=== PATIENT | female | born 1990 | race African-American/Black ===

== ENCOUNTER 2019-06-03 05:25 | Day surgery (SDC) | payer BC ==
[2019-05-28 11:28] VITALS: BMI 25.8
[2019-06-03] MEDS ORDERED: ACETAMINOPHEN 325 MG TABLET (FP) PO PRN (12:11)
[2019-06-03] MEDS ORDERED: IBUPROFEN 400 MG TABLET (FP) PO PRN (12:11)
--- NOTE | 2019-06-03 12:16 | HP ---
Admitting History and Physical - Admission History of Present Illness: 28 yo with hx/o irregular menses ultrasound suspicious for endometrial polyp for D&C, hysterscopy, polypectomy Hx/o nexplanon use History Source: Patient Limitations to Obtaining History: No Limitations - Past Medical History Cardiovascular: No: HTN ...LMP: 05/28/19 ...: No Heme/Onc: No: Anemia Additional Past Medical History: Headaches / Migraines - Past Surgical History Past Surgical History: Yes: None - Smoking History Smoking history: Never smoked - Alcohol/Substance Use Hx Alcohol Use: Yes (SOCIAL) - Social History History of Recent Travel: No Home Medications - Allergies Allergies/Adverse Reactions: Allergies Allergy/AdvReac Type Severity Reaction Status Date / Time No Known Allergies Allergy Verified 06/03/19 11:55 - Home Medications Home Medications: Ambulatory Orders Amitriptyline HCl [Elavil -] 25 mg PO HS 05/28/19 Meloxicam [Mobic] 15 mg PO PRN 06/03/19 Rizatriptan Benzoate [Rizatriptan] 10 mg PO DAILY 06/03/19 Family Disease History - Family Disease History Family History: Denies Review of Systems - Review of Systems Constitutional: reports: No Symptoms Cardiovascular: reports: No Symptoms Respiratory: reports: No Symptoms Gastrointestinal: reports: No Symptoms Musculoskeletal: reports: No Symptoms Integumentary: reports: No Symptoms Endocrine: reports: No Symptoms Physical Examination Vital Signs: Vital Signs Temperature 98.9 F 06/03/19 12:02 Pulse Rate 80 06/03/19 12:02 Respiratory Rate 16 06/03/19 12:02 Blood Pressure 108/64 06/03/19 12:02 O2 Sat by Pulse Oximetry (%) 100 06/03/19 12:02 Constitutional: Yes: Well Nourished, No Distress, Calm Cardiovascular: Yes: Regular Rate and Rhythm Respiratory: Yes: Regular, CTA Bilaterally Gastrointestinal: Yes: Normal Bowel Sounds, Soft Psychiatric: Yes: Alert, Oriented Assessment/Plan 28 yo irregular menses, polyp for surgical removal 1. Consents reviewed and signed 2. preop labs reviewed 3. Will proceed to OR
[2019-06-03] MEDS ORDERED: PROPOFOL 20 ML ONE (13:04)
[2019-06-03] MEDS ORDERED: MIDAZOLAM HCL 2 MG/2 ML SINGLE DOSE VIAL ONE (13:06)
[2019-06-03] MEDS ORDERED: KETOROLAC TROMETHAMINE 30 MG/1 ML VIAL ONE (13:55)
[2019-06-03] MEDS ORDERED: oxyCODONE HCL 5 MG TABLET PO PRN (13:56)
[2019-06-03] MEDS ORDERED: ONDANSETRON 4 MG/2 ML VIAL IVPUSH PRN (13:56)
[2019-06-03] MEDS ORDERED: LACTATED RINGERS SOLUTION 1,000 ML IV SCH (14:00)
--- NOTE | 2019-06-03 14:13 | OP ---
Operative Note - Note: Operative Date: 06/03/19 Pre-Operative Diagnosis: irregular bleeding Operation: hysteroscopy, dilation and curettage, polypectomy using Symphion Findings: large endometrial polyp, bilateral ostia visualized Surgeon: Maggy Contreras Anesthesiologist/BEEF FARMER: Evin Quezada Anesthesia: General Specimens Removed: endometrial polyp, endometrial curetting Estimated Blood Loss (mls): 2 Drains & Tubes with Location: fluid deficit 50 Fluid Volume Replaced (mls): 700 Operative Report Dictated: Yes
[2019-06-03 18:09] VITALS: BP 102/70; PULSE 70; TEMP 98.7
--- NOTE | 2019-06-03 19:25 | OP ---
DATE OF OPERATION: 06/03/2019 PREOPERATIVE DIAGNOSIS: Irregular bleeding, ultrasound findings suspicious polyp. POSTOPERATIVE DIAGNOSIS: Irregular bleeding, ultrasound findings suspicious polyp. SURGERY: Hysteroscopy, dilation and curettage, polypectomy using Symphion resectoscope. FINDINGS: Large endometrial polyp, Bilateral ostia visualized. SURGEON: Gwendolyn Contreras M.D. ANESTHESIOLOGIST: Ag Quezada CRNA ANESTHESIA: General. SPECIMENS: Removed endometrial polyp and endometrial curetting. ESTIMATED BLOOD LOSS: 2 mL FLUIDS GIVEN: 700 FLUID DEFICITS: 15 INDICATION: Patient is a 28-year-old with irregular bleeding. Ultrasound revealed a large endometrial polyp. She decided for surgical management. She was counseled regarding risks, benefits, alternatives, and complications to procedure including infection, bleeding, damage to surrounding organs, uterine perforation. She expressed understanding, was brought to the operating room. DESCRIPTION OF PROCEDURE: When anesthesia was found to be adequate, patient was prepped and draped in normal sterile fashion, placed in dorsal lithotomy position using Jourdan stirrups. A weighted speculum was placed in the patient's vagina. Anterior vagina was retracted using a Borja retractor. The anterior lip of the cervix was grasped using an Allis clamp. The cervix was gently dilated to accommodate a size 21 Alden dilator. A Symphion hysteroscope was placed and bilateral ostia were visualized. A large endometrial polyp was noted. Resectoscope was inserted, and resection was performed. Full removal of the polyp was noted. All instruments removed from the patient's vagina. The patient was awoken from anesthesia and brought to recovery room in stable condition. GWENDOLYN CONTRERAS M.D. [id number] MTDD
--- NOTE | 2019-06-09 16:09 | PATH ---
Surgical Pathology Report Patient Name: NESHA CROWELL [facility]. Rec. #: [id number] /Age/Gender: 1990 (Age: 28) / F Account: [id number] Location: [facility] SURGICAL Taken: 06/03/2019 Received: 06/03/2019 Reported: 06/09/2019 Physicians: Maggy Contreras Specimen(s) Received ENDOMETRIAL CURETTINGS AND POLYP Clinical History Endometrial polyps Final Diagnosis ENDOMETRIAL CURETTINGS AND POLYP, POLYPECTOMY, DILATION AND CURETTAGE: FRAGMENTS OF ENDOMETRIAL POLYP, ENDOMETRIUM WITH MILD CHRONIC ENDOMETRITIS, AND BENIGN FIBROMUSCULAR TISSUE. Electronically Signed Devi Mitchell M.D. Gross Description Received in formalin, labeled "endometrial curettings and polyp" is a 1.7 x 1.5 x 0.3 cm aggregate of light vasquez tissue. Entirely submitted in one cassette. AE/06/05/2019 ebram/06/05/2019
== END 2019-06-03 16:45 | disposition home or self-care (01) ==
LOC: JASU-SURG 05:25
PROVIDERS: ATTEND Obstetrics & Gynecology
PROC: 0UJD8ZZ Inspection of Uterus and Cervix, Via Natural or Artificial Opening Endoscopic (ICD-10-PCS; 2019-06-03)
PROC: 0UB97ZX Excision of Uterus, Via Natural or Artificial Opening, Diagnostic (ICD-10-PCS; principal; 2019-06-03 12:30)
PROC: 0UDB7ZX Extraction of Endometrium, Via Natural or Artificial Opening, Diagnostic (ICD-10-PCS; 2019-06-03 12:30)
DX: N93.8 Other specified abnormal uterine and vaginal bleeding (principal); N84.0 Polyp of corpus uteri
CPT/HCPCS: 84703; 88305-TC; 94760